=== PATIENT | male | born 1975 | race Caucasian/White ===

== ENCOUNTER 2018-11-22 09:53 | Emergency (ER) | payer MEDICAID, SELFPAY ==
[2018-11-22 10:10] VITALS: BP 141/70; PULSE 56; RESP 16; TEMP 36.6; O2SAT 98
--- NOTE | 2018-11-22 10:29 | ED.GENADUL_ITS ---
Discharge Plan Disposition Patient Disposition: OTHER Condition: Stable Discharge Details Chief Complaint: Nausea/Vomit/Diar Clinical Impression: Abdominal pain, Vomiting Primary Care Provider: [facility] ED Provider: Catrina Blunt Home Meds and New Rx's Prescriptions: No Action methadone 10 MG/ML concentrate 57 mg PO DAILY RF: 0 Discharge Data Discharge Date/Time-TO BE ENTERED AT DEPARTURE: 11/22/18 14:20 Medical Decision Making 43-year-old male with a history of hepatitis C and former opiate drug abuse, currently on methadone for the past 2 years, who presents for vomiting and constant diffuse abdominal pain since yesterday. No fever, diarrhea or urinary symptoms. Blood pressure mildly hypertensive. Afebrile. Patient appears uncomfortable due to nausea and dry heaving. Tenderness to palpation in left lower quadrant, right lower quadrant and suprapubic region. Normal exam. Right CVA tenderness. Patient has a history of kidney stones and states this does not feel similar. Differential diagnosis includes acute appendicitis, diverticulitis, colitis, gastroenteritis, nephrolithiasis. Will place an IV, bolus IV fluids, labs, CT abdomen and pelvis. 1245 -- there was delay in placing IV and obtaining labs and giving pt meds due to poor peripheral access and required multiple attempts by nursing staff. 1400 -- Labs and imaging reviewed. WBC 12. Bicarb 20. AG 11. Mild elevation of AST/ALT. Lipase within normal limits. CT negative for acute findings. Prior to reevaluating pt and discussing results, nurse relates that pt eloped. Pt had told nurse that he felt much better and wanted to go home and stated he had somewhere else he had to be. Medical Records Medical records reviewed: Yes I reviewed the patient's medical records. Imaging Data Radiologic Study: Radiologist's impression: CT abd/pelvis: No evidence of an acute abdomen. No findings to suggest acute diverticulitis. Normal appendix. Lab Data Lab results reviewed: Yes I reviewed the patient's lab results. Laboratory Tests Range/Units 11/22/18 11/22/18 12:43 12:43 WBC (4.4-10.8) k/cumm 12.24 H RBC (4.50-6.00) m/cumm 4.59 Hgb (13.5-17.5) g/dL 14.0 Hct (40.0-50.0) % 41.2 MCV (80-95) fL 89.8 MCH (27.0-33.0) pg 30.5 MCHC (32.0-36.0) g/dL 34.0 RDW (11.8-14.1) % 12.6 Plt Count (130-400) x1000/uL 189 MPV (8.0-11.0) fL 10.4 Sodium (136-145) mmol/L 137 Potassium (3.5-5.1) mmol/L 3.8 Chloride (98-107) mmol/L 105 Carbon Dioxide (21.0-32.0) mmol/L 20.1 L Anion Gap (3-11) mmol/L 11.9 H BUN (7-18) mg/dL 11 Creatinine (0.70-1.30) mg/dL 0.81 Estimated GFR/1.73 m2 (mL/min/1.73m2) >= 60.00 Glucose (70-100) mg/dL 126 H Calcium (8.5-10.1) mg/dL 9.1 Total Bilirubin (0.2-1.0) mg/dL 0.4 AST (15-37) U/L 54 H ALT (12-78) U/L 101 H Alkaline Phosphatase (46-116) U/L 55 Total Protein (6.4-8.2) g/dL 8.3 H Albumin (3.4-5.0) g/dL 3.4 Lipase (73-393) U/L 88 HPI General Mode of arrival: ambulatory . Date/Time Provider Initiated Documentation: 11/22/18 10:05 . Limitations to Documentation: no limitations . Information obtained by: patient . HPI Narrative: Patient is a 43-year-old male who presents the ED with complaint of vomiting and abdominal pain since yesterday. Patient states he has vomited multiple times, too numerous to count. States he consists mainly of bile. States his last bowel movement was yesterday morning and was normal. Patient is on methadone for the past 2 years due to previous opiate abuse. States he vomited his methadone this morning. Patient states the pain in his abdomen is around his umbilicus, feels constant, pressure, worse with moving, and better with nothing. He denies any radiation of pain. He denies any relief with Pepto-Bismol. Patient denies any recent travel or recent surgery. He admits to recent sick contacts at work with similar symptoms. Patient denies any diarrhea or urinary symptoms. Related Domenic a Home Medications Medication Instructions Recorded Confirmed methadone 57 mg PO DAILY 11/04/13 11/22/18 Allergies Allergy/AdvReac Type Severity Reaction Status Date / Time Penicillins AdvReac vomiting Unverified 11/22/18 10:15 migraines General Stated Complaint: Nausea/Vomit/Diar KUNAL: 3 Review of Systems Review of Systems All systems reviewed & are unremarkable except as noted in HPI and below Constitutional Reports as per HPI, Denies chills and Denies fever(s) Eyes Denies blurry vision ENT Denies dizziness, Denies sore throat and Denies throat swelling Cardiovascular Denies chest pain and Denies dyspnea Respiratory Denies dyspnea Gastrointestinal Reports abdominal pain, Denies diarrhea and Reports vomiting Genitourinary Denies hematuria and Denies dysuria Musculoskeletal Denies back pain and Denies numbness Integumentary/Breasts Denies lesions and Denies rash Neurologic Denies dizziness and Denies numbness Allergic/Immunologic Denies throat swelling [facility] Medical History Use of nonprescription opiate drugs (Acute) Hepatitis C (Chronic) Social History Smoking/Tobacco Use Status: Current every day alcohol intake: former year quit: 2005 substance use type: marijuana Exam Const General: cooperative, healthy appearing and no acute distress HENMT Head: normal to inspection Face and sinus: normal facial exam Eyes General: appearance normal, both eyes and all related structures Neck Neck: normal visual inspection and No submandibular swelling Lymphatic: no lymphadenopathy noted Chest Chest: normal inspection of the chest and no tenderness Resp Effort & Inspection: normal respiratory effort and able to speak in complete sentences Auscultation: clear to auscultation bilaterally Cardio Rate: regular rate Rhythm: regular rhythm GI Inspection: normal to inspection Palpation: soft, not firm, not rigid and tender in the LLQ, in the RLQ and suprapubicly Auscultation: normal bowel sounds Male General Exam: Yes normal external exam Scrotum: scrotum normal Testes: normal and no testicular tenderness Back/Spine/Pelvis Back: CVA tenderness (Right side) Skin General skin exam: no rashes or lesions noted Neuro General: alert, awake and oriented x3 Cognition: normal cognition Speech: speech normal Motor: muscle tone normal throughout Sensory Exam: no sensory deficits noted Extrem General: normal to inspection, full ROM, normal capillary refill, no calf tenderness bilaterally and no edema Psych Appearance: grossly normal Mental Status: mental status grossly normal Speech and Movement: speech and movement normal Affect: normal affect Course Vital Signs Temperature 97.9 F 11/22/18 10:10 Pulse 56 L 11/22/18 10:10 Respiratory Rate 16 11/22/18 10:10 Blood Pressure 141/70 H 11/22/18 10:10 Pulse Oximetry 98 11/22/18 10:10 Temperature 97.9 F 11/22/18 10:10 Temperature Source Temporal Artery Scan 11/22/18 10:10 Pulse 56 L 11/22/18 10:10 Respiratory Rate 16 11/22/18 10:10 Respiratory Effort Non-Labored 11/22/18 10:10 Blood Pressure 141/70 H 11/22/18 10:10 Blood Pressure Position Supine 11/22/18 10:10 Pulse Oximetry 98 11/22/18 10:10 Oxygen Delivery Method Room Air 11/22/18 10:10 Oxygen Flow Rate 0 11/22/18 10:10 Pain Level 10 11/22/18 10:10
[2018-11-22] MEDS: Normal Saline 1,000 ML 1000 ML IV (12:25)
[2018-11-22] MEDS: Ketorolac 30 MG/ML VIAL IVP (12:43)
[2018-11-22] MEDS: Prochlorperazine 10 MG/2 ML VIAL IVP (12:44)
[2018-11-22 12:47] VITALS: BP 138/80; PULSE 65; RESP 18; TEMP 37.3; O2SAT 96
[2018-11-22 12:48] LABS: HCT 41.2 % (40.0-50.0); Mean Corpuscular Hemoglobin 30.5 pg (27.0-33.0); Mean Corpuscular Volume 89.8 fL (80-95); Mean Platelet Volume 10.4 fL (8.0-11.0); Platelet Count 189 x1000/uL (130-400); RBC 4.59 m/cumm (4.50-6.00); RBC Distribution Width 12.6 % (11.8-14.1); White Blood Cell Count 12.24 k/cumm (4.4-10.8)
--- NOTE | 2018-11-22 12:49 | NUR.NOTE ---
patient medicated per MD order Nursing Note:
[2018-11-22] MEDS: Omnipaque 350 MG/ML 100 ML BTL IJ (13:16)
[2018-11-22 13:17] LABS: ALT 101 U/L (12-78); AST 54 U/L (15-37); Albumin 3.4 g/dL (3.4-5.0); Alkaline Phosphatase 55 U/L (46-116); Anion Gap 11.9 mmol/L (3-11); BUN 11 mg/dL (7-18); Bilirubin, Total 0.4 mg/dL (0.2-1.0); CO2 20.1 mmol/L (21.0-32.0); CREATININE 0.81 mg/dL (0.70-1.30); Calcium 9.1 mg/dL (8.5-10.1); Chloride 105 mmol/L (98-107); Glucose 126 mg/dL (70-100); Lipase 88 U/L (73-393); Potassium 3.8 mmol/L (3.5-5.1); Sodium 137 mmol/L (136-145); Total Protein 8.3 g/dL (6.4-8.2)
--- NOTE | 2018-11-22 13:50 | DI.CT_ITS ---
SYMPTOMS/DIAGNOSIS: LOWER ABDOMINAL PAIN, ? APPENDICITIS VS DIVERTICULITIS CT SCAN OF THE ABDOMEN AND PELVIS: CT scan of the abdomen and pelvis was performed following the uneventful administration of intravenous contrast material. There are no priors for comparison. Dependent atelectatic changes are seen in the lung bases. The liver is normal in size. No suspicious hepatic masses are seen. The portal and superior mesenteric veins are patent. The gallbladder is negative. No biliary ductal dilatation is seen. The pancreas, spleen and adrenal glands are unremarkable. The kidneys show normal and symmetric enhancement. No solid renal mass or obstruction is seen. There are a few scattered tiny hypodensities in the kidneys. They are too small for further characterization but likely reflect small cysts. No ureterolithiasis or hydronephrosis is seen. The urinary bladder is intact. The reproductive organs are unremarkable. The abdominal aorta shows atherosclerosis. No aneurysmal dilatation is seen. No significant abdominal or pelvic adenopathy, ascites or pneumoperitoneum is present. No findings to suggest acute diverticulitis are present. There is a normal appendix in the right lower quadrant. The bowel shows no evidence of obstruction or inflammation. No acute osseous abnormality is identified. IMPRESSION: No evidence of an acute abdomen. No findings to suggest acute diverticulitis. Normal appendix. The findings were discussed with the emergency department on the date of the examination.
[2018-11-22 14:07] VITALS: BP 143/68; PULSE 84; RESP 16; TEMP 37; O2SAT 97
--- NOTE | 2018-11-22 14:24 | NUR.NOTE ---
patient expressed that he wantrs to leave , have somewhere to be pain and nausea improved, MD aware, patient then took out own IV, patient encouraged to stay to be formally discharged and left without papers Nursing Note:
== END 2018-11-22 14:20 | disposition other institution (70) ==
LOC: ER 14:42
PROVIDERS: Emergency Provider Physician Assistant; PCP General Practice
DX: R10.9 Unspecified abdominal pain (principal); R11.2 Nausea with vomiting, unspecified; Z87.442 Personal history of urinary calculi
CPT/HCPCS: 36415; 80053; 83690; 85027; 96361; 96374; 96375; 99285; 74177; 99284; J0780; J1885; J3490